=== PATIENT | female | born 1990 | race American Indian/Alaskan Native ===

== ENCOUNTER 2016-05-15 20:12 | Emergency (ER) | payer SELFPAY ==
[2016-05-15 20:34] VITALS: BP 130/83
[2016-05-15 21:09] LABS: Basophils % (Auto) 0.3 % (0.0-1.8); Eosinophils % (Auto) 0.5 % (0.0-4.3); Hematocrit 37.8 % (30.3-42.9); Mean Corpuscular HGB Conc 32 % (30-34); Mean Corpuscular Hemoglobin 24 pg (28-32); Mean Corpuscular Volume 77 fl (79-97); Platelet Count 193 K/mm3 (140-440); Red Blood Count 4.92 M/mm3 (3.65-5.03); Red Cell Distribution Width 20.5 % (13.2-15.2); White Blood Count 6.6 K/mm3 (4.5-11.0)
[2016-05-15 21:19] LABS: Bacteria,Urine 1+ /HPF (Negative); Bilirubin,Urine NEG (Negative); Blood,Urine NEG (Negative); Ketones,Urine NEG (Negative); Leukocyte Esterase,Urine SM (Negative); Mucus,Urine FEW /HPF; Nitrite,Urine NEG (Negative); Protein,Urine <15 mg/dL mg/dL (Negative); Urobilinogen,Urine < 2.0 mg/dL (<2.0)
[2016-05-15 21:30] LABS: BUN/Creatinine Ratio 14.28; Blood Urea Nitrogen 10 mg/dL (7-17); Calcium 9.4 mg/dL (8.4-10.2); Carbon Dioxide 22 mmol/L (22-30); Chloride 102.5 mmol/L (98-107); Glucose 87 mg/dL (65-100); Potassium 3.8 mmol/L (3.6-5.0); Sodium 138 mmol/L (137-145)
[2016-05-15 21:40] LABS: Anion Gap 17 mmol/L
--- NOTE | 2016-05-17 14:26 | ED Elopement Review ---
ED Pt Elopement review - Results review Lab results: Laboratory Tests 05/15/16 05/15/16 05/15/16 20:59 20:59 21:04 WBC 6.6 RBC 4.92 Hgb 12.0 Hct 37.8 MCV 77 L MCH 24 L MCHC 32 RDW 20.5 H Plt Count 193 Lymph % (Auto) 33.4 [place] % (Auto) 7.9 H Eos % (Auto) 0.5 Baso % (Auto) 0.3 Lymph # 2.2 [place] # 0.5 Eos # 0.0 Baso # 0.0 Seg Neutrophils % 57.9 Seg Neutrophils # 3.8 Sodium 138 Potassium 3.8 Chloride 102.5 Carbon Dioxide 22 Anion Gap 17 BUN 10 Creatinine 0.7 Estimated GFR > 60 BUN/Creatinine Ratio 14.28 Glucose 87 Calcium 9.4 Troponin T < 0.010 Urine Color Straw Urine Turbidity Clear Urine pH 5.0 Ur Specific [place] 1.011 Urine Protein <15 mg/dl Urine Glucose (UA) Neg Urine Ketones Neg Urine Blood Neg Urine Nitrite Neg Ur Reducing Substances Not Reportable Urine Bilirubin Neg Urine Ictotest Not Reportable Urine Urobilinogen < 2.0 Ur Leukocyte Esterase Sm Urine WBC (Auto) 7.0 H Urine RBC (Auto) 1.0 U Epithel Cells (Auto) 10.0 Urine Bacteria (Auto) 1+ Urine Mucus Few Urine HCG, Qual Negative - Call Back decision Pt Call Back Decision: Pt to F/U with PMD
== END 2016-05-15 23:33 | disposition left against medical advice (07) ==
LOC: ED 20:12
DX: R07.9 Chest pain, unspecified (principal); R06.02 Shortness of breath; Z53.21 Procedure and treatment not carried out due to patient leaving prior to being seen by health care provider
CPT/HCPCS: 36415; 80048; 81001; 81025; 84484; 85025; 93005; 93010